=== PATIENT | female | born 1960 | race Caucasian/White ===

== ENCOUNTER 2022-03-07 08:26 | Day surgery (SDC) | payer OTHER ==
[~2022-03-07 08:26] MED LIST: Lactated Ringers 1,000 ML IV SCH; Lidocaine 1%/Sod Bicarbonate in NS 8.4% 1 ML Syringe IDERM PRN; Sodium Chloride 0.9% 10 ML Syringe FLUSH PRN; Sodium Chloride 0.9% 10 ML Syringe FLUSH SCH
[2022-03-07] MEDS ORDERED: Lidocaine 1% 4 ML ONE (09:08)
[2022-03-07] MEDS ORDERED: Propofol 200 MG/20 ML SDV ONE ×3 (09:09→10:02)
[2022-03-07] MEDS ORDERED: Ondansetron 4 MG/2 ML SDV IVPUSH PRN (10:36)
[2022-03-07 11:15] VITALS: BP 111/44; PULSE 62
== END 2022-03-07 11:30 | disposition home or self-care (01) ==
LOC: JD.SDS 08:26
PROVIDERS: ATTEND Surgery
DX: Z12.11 Encounter for screening for malignant neoplasm of colon (principal); K63.5 Polyp of colon; K62.1 Rectal polyp; M81.0 Age-related osteoporosis without current pathological fracture; Z90.49 Acquired absence of other specified parts of digestive tract; Z98.890 Other specified postprocedural states; Z79.899 Other long term (current) drug therapy
CPT/HCPCS: 00812; J2704; J7120